=== PATIENT | male | born 1965 | race African-American/Black ===

== ENCOUNTER 2023-04-27 05:44 | Outpatient (CLI) | payer MEDICAID | END 2023-04-27 23:59 | disposition critical access hospital (66) | LOC: EMS 05:44 | DX: R56.9 Unspecified convulsions (principal); R42 Dizziness and giddiness; Z59.01 Sheltered homelessness | CPT/HCPCS: A0425; A0429; A0999 ==

== ENCOUNTER 2023-04-27 06:01 | Emergency (ER) | payer MEDICAID, OTHER ==
[2023-04-27] MEDS ORDERED: ACETAMINOPHEN 325 MG TABLET PO STA (06:51)
[2023-04-27 06:52] LABS: BASOPHILS % (AUTO) 0.6 %; EOSINOPHILS # (AUTO) 0.2 10^3/uL (0.0-0.7); EOSINOPHILS % (AUTO) 2.4 %; HCT - HEMATOCRIT 40.9 % (42.0-52.0); HGB - HEMOGLOBIN 13.2 g/dL (14.0-18.0); LYMPHOCYTES # (AUTO) 2.1 10^3/uL (1.5-3.5); LYMPHOCYTES % (AUTO) 30.2 %; MEAN CORPUSCULAR HEMOGLOBIN 25.8 pg (27.0-31.0); MEAN CORPUSCULAR HGB CONC 32.3 g/dL (32.0-36.0); MEAN PLATELET VOLUME 8.7 fL (7.4-11.4); MONOCYTES # (AUTO) 0.6 10^3/uL (0.0-1.0); NEUTROPHILS # (AUTO) 4.1 10^3/uL (1.5-6.6); NEUTROPHILS % (AUTO) 57.5 %; PLT - PLATELET COUNT 248 10^3/uL (130-450); RED BLOOD COUNT 5.11 10^6/uL (4.70-6.10); RED CELL DISTRIBUTION WIDTH 14.2 % (12.0-15.0)
[2023-04-27 07:08] LABS: ALBUMIN 3.9 g/dL (3.2-5.5); ALBUMIN/GLOBULIN RATIO 1.1 (1.0-2.2); BILIRUBIN,TOTAL 0.5 mg/dL (0.2-1.0); CALCIUM 8.9 mg/dL (8.5-10.3); CREATININE 0.9 mg/dL (0.6-1.2); POTASSIUM 3.9 mmol/L (3.5-5.0); TOTAL PROTEIN 7.6 g/dL (6.7-8.2)
--- NOTE | 2023-04-27 07:08 | ED Physician Documentation ---
PD HPI SEIZURE - Stated complaint Stated Complaint: SZ - Chief complaint Chief Complaint: Ext Problem - History obtained from History obtained from: Patient - History of Present Illness Timing - onset: Today Witnessed: Witnessed Number of seizures: Lasted - seconds Injury during seizure: None History of seizures: Other (prior CVA with left arm (largely) and leg (mild) weakness but he says he can ambulate with walker.). 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) Similar symptoms before: Has not had sx before Review of Systems Constitutional: denies: Fever, Chills Nose: denies: Rhinorrhea / runny nose, Congestion Throat: denies: Sore throat Cardiac: denies: Chest pain / pressure Respiratory: denies: Cough GI: denies: Abdominal Pain, Vomiting, Diarrhea PD PAST MEDICAL HISTORY - Past Medical History Cardiovascular: Hypertension Neuro: CVA Endocrine/Autoimmune: Type 2 diabetes - Present Medications Home Medications: Ambulatory Orders Medication Instructions Recorded Confirmed levETIRAcetam [Keppra] 500 mg PO BID 30 Days #120 tablet 04/27/23 - Allergies Allergies/Adverse Reactions: Allergies Allergy/AdvReac Type Severity Reaction Status Date / Time No Known Drug Allergies Allergy Verified 04/27/23 13:36 PD ED PE NORMAL - Vitals Vital signs reviewed: Yes - General General: Alert and oriented X 3, No acute distress, Well developed/nourished - HEENT HEENT: Pharynx benign (no noted tongue/lip biting. ) - Neck Neck: Supple, no meningeal sign, No adenopathy, No bruit - Cardiac Cardiac: RRR, No murmur - Respiratory Respiratory: Clear bilaterally - Abdomen Abdomen: Soft, Non tender - Derm Derm: Normal color, Warm and dry - Neuro Neuro: Alert and oriented X 3, Normal speech, Other (motor and sensory decreased left arm moderately and left leg mildly paresis. Minimal facial weakness. ) Results - Vitals Vitals: Vital Signs - 24 hr 04/27/23 04/27/23 04/27/23 06:07 06:12 08:12 Temperature 36.7 C 36.5 C Heart Rate 93 92 84 Respiratory 16 16 16 Rate Blood Pressure 136/79 H 122/78 121/78 O2 Saturation 97 100 98 Oxygen O2 Source Room air - Labs Labs: Laboratory Tests 04/27/23 04/27/23 06:46 06:46 WBC 7.0 RBC 5.11 Hgb 13.2 L Hct 40.9 L MCV 80.0 MCH 25.8 L MCHC 32.3 RDW 14.2 Plt Count 248 MPV 8.7 Neut # (Auto) 4.1 Lymph # (Auto) 2.1 [place] # (Auto) 0.6 Eos # (Auto) 0.2 Baso # (Auto) 0.0 Absolute Nucleated RBC 0.00 Nucleated RBC % 0.0 Sodium 134 L Potassium 3.9 Chloride 101 Carbon Dioxide 25 Anion Gap 8.0 BUN 17 Creatinine 0.9 Estimated GFR (MDRD) 105 Glucose 99 Calcium 8.9 Total Bilirubin 0.5 AST 17 ALT 18 Alkaline Phosphatase 76 Total Protein 7.6 Albumin 3.9 Globulin 3.7 Albumin/Globulin Ratio 1.1 Lipase 32 - Rads (name of study) head CT Relevant Findings:: Prelim report reviewed (old right parietal CVA. No acute bleeding, swelling, mass effect. ), EMP independent interpretation of test, See rad report PD Medical Decision Making - ED course Complexity details: reviewed results (head CT showing prior old CVA right parietal. No acute bleed/findings. ), considered differential (reportedly an episode of decreased LOC/poorly responsive. Not clear reporting if seizure like movement. EMS reports patient awake and conversant on their arrival, so not convicing post-ictal. He appears well otherwise. If it were seizure, is noew onset and would not necessitate AED meds at this time), d/w patient ED course: No history of seizures and description not clearly convincing for one. Even if certain, would not de facto start AED meds. He denies substance nor alcohol use reglarly, so not considring substance use/diet, Departure - Departure Disposition: 01 Home, Self Care Clinical Impression: CVA, old, hemiparesis, Syncope Condition: Stable Record reviewed to determine appropriate education?: Yes Follow-Up: [facility] [Provider Group] [facility] [Provider Group] Comments: It is unclear what the episode you had. Consideration would be a new onset seizure though its not clearly that those symptoms. It could have been a fainting episode. Stay well-hydrated. Follow-up with local clinic if you are going to be on would be [place] for a longer period. Follow-up or return to the ER if repeated episodes. Discharge Date/Time: 04/27/23 08:50
--- NOTE | 2023-04-27 07:26 | CT Report ---
PROCEDURE: HEAD WO INDICATIONS: headache, possible seizure TECHNIQUE: Noncontrast 4.5 mm thick angled axial sections acquired from the foramen magnum to the vertex. For r adiation dose reduction, the following was used: automated exposure control, adjustment of mA and/or kV according to patient size. COMPARISON: None. FINDINGS: Image quality: Excellent. CSF spaces: Basal cisterns are patent. No extra-axial fluid collections. Ventricles are normal in size and shape. Brain: There is a large area of chondromalacia in right frontal parietal lobe, consistent with old in farct. No midline shift. No intracranial masses or hemorrhage. Hancock-white matter interface is dean l. Skull and face: Calvarium and visualized facial bones are intact, without suspicious lesions. Sinuses: Visualized sinuses and mastoids are clear. IMPRESSION: 1. No acute intracranial abnormality. 2. Encephalomalacia in the right frontoparietal lobe, compatible with infarct. No significant discrepancy with the preliminary interpretation. Reviewed by: Gavino Ledezma MD on 04/27/2023 7:25 AM PDT Approved by: Gavino Ledezma MD on 04/27/2023 7:25 AM PDT Station ID: [id number]
[2023-04-27 08:52] VITALS: BP 121/78
== END 2023-04-27 08:50 | disposition home or self-care (01) ==
LOC: EDSEX → ED 06:01
DX: R55 Syncope and collapse (principal); R56.9 Unspecified convulsions; I69.354 Hemiplegia and hemiparesis following cerebral infarction affecting left non-dominant side; I69.398 Other sequelae of cerebral infarction; G93.89 Other specified disorders of brain; Z59.02 Unsheltered homelessness
CPT/HCPCS: 36415; 70450; 71045; 80053; 80306; 81003; 83690; 85025; 99284; A9270; 81001; 87086

== ENCOUNTER 2023-04-27 12:32 | Outpatient (CLI) | payer MEDICAID | END 2023-04-27 23:59 | disposition critical access hospital (66) | LOC: EMS 12:32 | DX: R56.9 Unspecified convulsions (principal); R51.9 Headache, unspecified | CPT/HCPCS: A0425; A0429; A0999 ==

== ENCOUNTER 2023-04-27 12:51 | Emergency (ER) | payer MEDICAID ==
[2023-04-27] MEDS ORDERED: ACETAMINOPHEN 325 MG TABLET PO STA ×2 (13:06→13:08)
[2023-04-27] MEDS ORDERED: levETIRAcetam 250 MG TABLET PO STA (13:08)
--- NOTE | 2023-04-27 13:08 | ED Physician Documentation ---
History of Present Illness - Stated complaint Stated Complaint: SEIZURE - Additonal information Additional information: 57-year-old male returns to the emergency department for evaluation of witnessed seizure activity. The patient was seen in this emergency department very early this a.m. after he reportedly had a seizure at the [place], the [place] [facility] [place]. It was not a well described event. The patient does have a history of previous stroke resulting in significant left-sided deficits. When seen by my colleague earlier in the day he had negative CBC and electrolytes. A CT of the head that was completed just a few hours ago showed no acute intracranial findings though he has developed significant encephalomalacia in the right frontal parietal lobe compatible with previous infarct. The patient was initially born in the [place]. He states to me that he had a stroke about 2 years ago though he tells me he did not have any formal medical treatment for it. Since then he has had left-sided deficits. The patient arrived on [facility] reportedly from the [facility] within the last week. He is not a good historian. He states that he is simply on [facility] to help regain the strength in his left side. He denies drug or alcohol use. Patient denies that he has ever had any previous seizure activity previous to the events of this morning and this afternoon. He reports that he takes Tylenol and ibuprofen only for headaches, which are chronic Review of Systems Constitutional: reports: Reviewed and negative Cardiac: reports: Reviewed and negative Respiratory: reports: Reviewed and negative GI: reports: Reviewed and negative Neurologic: reports: Focal weakness (Baseline left-sided weakness), Seizure PD PAST MEDICAL HISTORY - Present Medications Home Medications: Ambulatory Orders Medication Instructions Recorded Confirmed levETIRAcetam [Keppra] 500 mg PO BID 30 Days #120 tablet 04/27/23 - Allergies Allergies/Adverse Reactions: Allergies Allergy/AdvReac Type Severity Reaction Status Date / Time No Known Drug Allergies Allergy Verified 04/27/23 13:36 PD ED PE NORMAL - General General: Alert and oriented X 3, No acute distress, Well developed/nourished - HEENT HEENT: Atraumatic - Cardiac Cardiac: RRR, No murmur - Respiratory Respiratory: No respiratory distress, Clear bilaterally - Abdomen Abdomen: Normal bowel sounds, Soft - Extremities Extremities: Other (Left arm is held at the Abdomen with mild contracture.) - Neuro Neuro: Alert and oriented X 3, global technical writer 2-12 intact, Other (At baseline significant left-sided arm and leg weakness. Mild contracture of the left upper extremity) Eye Opening: Spontaneous Motor: Obeys Commands Verbal: Oriented GCS Score: 15 - Psych Psych: Normal affect Results - Vitals Vitals: Vital Signs - 24 hr 04/27/23 04/27/23 13:00 13:06 Temperature 36.4 C L Heart Rate 86 Respiratory 18 Rate Blood Pressure 139/70 H O2 Saturation 98 Oxygen O2 Source Room air - Labs Labs: Laboratory Tests 04/27/23 04/27/23 14:34 14:34 Urine Color YELLOW Urine Clarity CLEAR Urine pH 6.5 Ur Specific [place] 1.020 Urine Protein NEGATIVE Urine Glucose (UA) NEGATIVE Urine Ketones TRACE Urine Occult Blood NEGATIVE Urine Nitrite NEGATIVE Urine Bilirubin NEGATIVE Urine Urobilinogen 0.2 (NORMAL) Ur Leukocyte Esterase NEGATIVE Ur Microscopic Review NOT INDICATED Urine Culture Comments NOT INDICATED Urine Opiates Screen NEGATIVE Ur Oxycodone Screen NEGATIVE Urine Methadone Screen NEGATIVE Ur Propoxyphene Screen NEGATIVE Ur Barbiturates Screen NEGATIVE Ur Tricyclics Screen NEGATIVE Ur Phencyclidine Scrn NEGATIVE Ur Amphetamine Screen NEGATIVE U Methamphetamines Scrn NEGATIVE U Benzodiazepines Scrn NEGATIVE Urine Cocaine Screen NEGATIVE U Cannabinoids Screen NEGATIVE - Rads (name of study) cxr Relevant Findings:: Final report received (No acute cardiopulmonary process) PD Medical Decision Making - ED course Complexity details: reviewed results, re-evaluated patient, considered differential, d/w patient, d/w alliance consultant (We[facility]) ED course: 57-year-old male who is homeless and recently arrived to [facility] from the [facility] area presents to the emergency department for a recurrent seizure. Seen much earlier this morning about 6 AM for a seizure while at the [place]. However this was not a well described event. My colleague who saw the patient earlier today did obtain a CT scan that showed previous right-sided infarcts which have now left the patient with left-sided deficits. This is a long known history for the patient. CBC and electrolytes showed no acute findings. Today in the emergency department I obtained a chest x-ray to rule out pneumonia or obvious infection as a source for seizures and this was negative as interpreted by the radiologist. Urinalysis today also shows no signs of infection. His urine drug screen was negative. I did not repeat the CBC and electrolytes as they had just been completed by my colleague earlier in the day. Subsequently given a recurrent seizure I did load the patient with 1000 mg of Keppra orally. Subsequently I reached out to [facility] neurologist Dr. Richmond who was in agreement to begin the patient on antiepileptic medication. She would recommend Keppra 500 mg twice daily. Given the lack of fevers or previous lack of leukocytosis I am not concerned about an infectious etiology. The patient does not appear encephalopathic or meningitic The patient is attended at the bedside with 2 close friends who are helping him navigate his medical care. The patient is attached to a primary care provider in [place]. I have encouraged them to follow closely with his primary provider as the patient would benefit from referral to neurology. This provider can also make a referral for the patient to physical therapy as he is eager to improve the left-sided deficits that he is had for many years after a stroke. Advised the patient to begin taking 81 mg aspirin daily on the advice of Whether it is this would be indicated given his history of previous strokes. I also discussed the usual emergent return precautions for worsening symptoms recurrent seizures or status epilepticus. He is discharged home at baseline medical condition and is stable. Departure - Departure Disposition: 01 Home, Self Care Clinical Impression: Seizure, History of CVA (cerebrovascular accident) without residual deficits Condition: Stable Record reviewed to determine appropriate education?: Yes Instructions: ED Seizure Recurrent Prescriptions: levETIRAcetam [Keppra] 500 mg PO BID 30 Days #120 tablet Comments: Moises you have begun having seizures. This may be related to your history of previous stroke which we see easily on CAT scan today. Today your labs did not show any worrisome findings. There is no infection in your urine or pneumonia in your chest x-ray. I have consulted with a neurologist through [facility] who does recommend that we initiate Keppra, and antiseizure medicine. You should take 500 mg twice daily. It is critical that you discuss this ED visit with your primary care provider. He/she should make a referral for you to neurology for long-term follow-up. They can also write for the refills of the Keppra. Your primary doctor can also write a referral for you to be seen by physical therapy. I do recommend that you begin taking a daily 81 mg aspirin. This is indicated because you have a history of a stroke. You can continue to take the Tylenol or ibuprofen as you otherwise would for your headaches. It is important that you discuss your chronic and recurrent headaches with a neurologist. They can help you manage these more effectively in the long-term In people that have seizures it is important to keep track of how frequently you are having seizures. It is important that if you have a seizure you return to a normal baseline level of awareness within 15 to 20 minutes. If that does not occur you should return to the ER. You should return to the ER if you have any recurrent seizures that come minutes apart.
[2023-04-27 14:37] LABS: MUDS CUTOFF CONCENTRATIONS CUTOFF CONC BELOW:
--- NOTE | 2023-04-27 14:57 | XRAY Report ---
PROCEDURE: Chest 1 View X-Ray INDICATIONS: chest pain TECHNIQUE: One view of the chest was acquired. COMPARISON: None. FINDINGS: Surgical changes and devices: None. Lungs and pleura: No pleural effusions or pneumothorax. Lungs are clear. Mediastinum: Mediastinal contours appear normal. Heart size is normal. Bones and chest wall: No suspicious bony lesions. Overlying soft tissues appear unremarkable. IMPRESSION: No acute cardiopulmonary process. Reviewed by: Reinier Joshi on 04/27/2023 2:56 PM PDT Approved by: Reinier Joshi on 04/27/2023 2:56 PM PDT Station ID: [id number]
[2023-04-27 15:01] LABS: AMPHETAMINE SCREEN,URINE NEGATIVE (NEGATIVE); BARBITURATE SCREEN,UR NEGATIVE (NEGATIVE); BENZODIAZEPINES SCREEN, URINE NEGATIVE (NEGATIVE); COCAINE SCREEN URINE NEGATIVE (NEGATIVE); METHADONE SCREEN, URINE NEGATIVE (NEGATIVE); METHAMPHETAMINES SCREEN, URINE NEGATIVE (NEGATIVE); OPIATE SCREEN, URINE NEGATIVE (NEGATIVE); OXYCODONE SCREEN, URINE NEGATIVE (NEGATIVE); PROPOXYPHENE SCREEN, URINE NEGATIVE (NEGATIVE); THC CANNABINOID SCREEN, URINE NEGATIVE (NEGATIVE); TRICYCLIC ANTIDEPRESSANT,URINE NEGATIVE (NEGATIVE)
[2023-04-27 15:10] LABS: BILIRUBIN,URINE NEGATIVE (NEGATIVE); GLUCOSE, URINE (UA) NEGATIVE (NEGATIVE); KETONES,URINE (UA) TRACE mg/dL (NEGATIVE); LEUKOCYTE ESTERASE, URINE NEGATIVE (NEGATIVE); NITRITE,URINE NEGATIVE (NEGATIVE); OCCULT BLOOD,URINE NEGATIVE (NEGATIVE); PH,URINE 6.5 PH (5.0-7.5); PROTEIN,URINE NEGATIVE (NEGATIVE); UROBILINOGEN,URINE 0.2 (NORMAL) E.U./dL (NORMAL)
[2023-04-27 15:11] LABS: CLARITY,URINE CLEAR (CLEAR)
[2023-04-27 15:33] VITALS: BP 140/81
== END 2023-04-27 16:09 | disposition home or self-care (01) ==
LOC: EDUNIT# → ED 12:51
DX: R56.9 Unspecified convulsions (principal); I69.354 Hemiplegia and hemiparesis following cerebral infarction affecting left non-dominant side; I69.398 Other sequelae of cerebral infarction; G93.89 Other specified disorders of brain; Z59.02 Unsheltered homelessness
CPT/HCPCS: 80306; 81001; 81003; 87086